=== PATIENT | male | born 2000 | race Hispanic/Latino ===

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

== ENCOUNTER 2022-03-13 13:44 | Emergency (ER) | payer OTHER ==
[~2022-03-13] VITALS: Ht 180.3 cm; Wt 140.6 kg
[2022-03-13 13:59] VITALS: BP 147/76
== END 2022-03-13 15:56 | disposition home or self-care (01) ==
LOC: EDH 13:44
DX: J06.9 Acute upper respiratory infection, unspecified (principal); Z20.822 Contact with and (suspected) exposure to COVID-19
CPT/HCPCS: 99283; 87635; 87804 ×2; C9803

== ENCOUNTER 2024-07-13 13:27 | Emergency (ER) | payer BC ==
[~2024-07-13] VITALS: Ht 88.9 cm; Wt 143.8 kg
[2024-07-13 13:30] VITALS: BP 135/89; PULSE 103; RESP 18; TEMP 99.3
--- NOTE | 2024-07-13 14:11 | ERN ---
ED Note History of Present Illness Stated Complaint: FEVER,NAUSEA Chief Complaint: Cough Time Seen by MD: 13:30 Time Seen by Midlevel: 13:33 Dictation: 24-year-old male coming in with complaints of itchy throat, cough and fever onset . Patient states the mother had similar symptoms last week. Denies any medical or surgical history. Allergies: Coded Allergies: No Known Drug Allergies (Unverified Allergy, Unknown, 09/06/19) Past Medical History Past Medical History: Asthma Surgical History: None Review of System Dictation Constitutional: Negative for fever,chills, and weight loss Eyes: Negative for injury, pain,redness, and discharge ENT: Negative for injury,pain or swelling Cardiovascular: Negative for chest pain, palpitations, and edema Respiratory: Complaining of cough Abdomen/GI: Negative for abdominal pain, nausea, vomiting, diarrhea, and constipation Back: Negative for injury and pain : Negative for injury, bleeding and discharge MS/Extremity: Negative for injury and deformity Skin: Negative for rash, and discoloration Neuro: Negative for headache, weakness, numbness, tingling, and seizure Psych: Negative for suicide ideation, homicidal ideation, and hallucinations Review of Systems: was completed Initial Vital Sign VS Vital Signs Date Time Temp Pulse Resp B/P (MAP) Pulse Ox O2 Delivery O2 Flow Rate FiO2 07/13/24 13:30 99.3 103 18 135/89 95 Room Air 0 Physical Exam Dictation General: awake, alert, NAD Head/Face: Normocephalic, atraumatic Eyes: PERRL, EOMI, vision at baseline ENT: oral cavity clear, TMs clear, no signs of infection Neck: Trachea midline, supple, no nuchal rigidity Cardiovascular: RRR, normal S1/S2, No MRGs, no JVD Respiratory: CTAB, no respiratory distress, No rales or wheezes Abdomen: Soft, non-tender, non-distended, normal bowel sounds, no guarding or rebound. Skin: Warm, dry, normal turgor, no rash MS/Extremity: Pulses equal, no cyanosis, neurovascular intact, FROM Neuro: COAx4, GCS 15, strength 5/5, CN 2-12 intact, normal cerebellar exam, normal gait, Psych: Normal behavior, mood, and affect normal Results (Laboratory/Radiology) Laboratory/Radiology Laboratory Tests Test 07/13/24 13:40 Influenza Type A Antigen Negative For Type A Influenza Type B Antigen Negative For Type B SARS-CoV-2, RNA, NAAT NEGATIVE SARS CoV-2 Labs Reviewed?: Yes ED Course ED Course Orders Procedure Category Date Status Time Covid Rna Naat LAB 07/13/24 Complete 13:35 Influenza Type A & B, LAB 07/13/24 Complete Rapid 13:35 Benzonatate 100 Mg PHA 07/13/24 Complete Capsule (Tessalon 100 13:56 Acetaminophen 500mg PHA 07/13/24 Complete Tab (Tylenol 500mg T 13:56 Ketorolac PHA 07/13/24 Complete Tromethamine 15mg/Ml 13:56 Rapid (Group A Strep) LAB 07/13/24 Logged 14:23 Current Medications Medications (Trade) Dose Ordered Sig/Sharda Route PRN Reason Start Time Stop Time Status Last Admin Dose Admin Acetaminophen (TYLenol 500MG TAB) 1,000 mg ONCE STAT PO 07/13/24 13:56 07/13/24 13:58 DC Benzonatate (Tessalon 100mg Caps) 200 mg ONCE STAT PO 07/13/24 13:56 07/13/24 13:58 DC Ketorolac Tromethamine (toRADol) 15 mg ONCE STAT IV 07/13/24 13:56 07/13/24 13:58 DC Vital Signs Date Time Temp Pulse Resp B/P (MAP) Pulse Ox O2 Delivery O2 Flow Rate FiO2 07/13/24 13:30 99.3 103 18 135/89 95 Room Air 0 Medical Decision Making MDM MDM: 24-year-old male coming in with complaints of itchy throat, cough and fever onset . Patient states the mother had similar symptoms last week. Denies any medical or surgical history. Swabs negative. Patient will be disch arged there viral syndrome. Discussed with the patient on findings. Educated take [id number] symptomatic control follow up with PCP in 1-2 days. Patient verbalized understanding, answered all questions. Differential diagnosis: Influenza, COVID, strep, viral syndrome Rationale: Tests considered and ordered secondary to shared decision making include: Previous outside records reviewed: Old ER visits. Risk of complication and/or morbidity or mortality of patient management: None Medications-Per medication reconciliation Need for hospitalization: Patient does not meet criteria for hospitalization. Need for emergency major/minor surgery: No There are no social concerns with this patient. Prescription drug management Prescriptions will include symptomatic care Patient's prior external medical records from other ER visits were reviewed by me as indicated. Prior testing and results from previous visits were reviewed. Prior tests were taken into account with medical decision making and resource utilization, independent historian/historians were used to obtain complete medical history. I independently interpreted the test that were performed, results were reviewed by me and considered findings on radiology if ordered. Medical management and examination interpretation discussions were had by me with other qualified healthcare professionals as indicated for the patient's care. DX & DISP Disposition: Discharge Departure Impression: Primary Impression: Viral syndrome Condition: Stable Additional Instructions: Your swabs were negative. Take [id number] medication for symptomatic control like Tylenol, Motrin, Mucinex. Follow up with your primary doctor in 1- 2 days. Referrals: SELF,REFERRAL (PCP) Time of Disposition: 14:56 I have reviewed the case, and I agree with, Diagnosis and Plan I PERFORMED A SUBSTANTIVE PORTION OF THE VISIT. I HAVE REVIEWED AND PERSONALLY MADE AND APPROVE THE MANAGEMENT PLAN THAT IS DOCUMENTED IN THE NOTE BY MYSELF OR THE AP P. I ACKNOWLEDGE FULL RESPONSIBILITY FOR THE PATIENT'S MANAGEMENT PLAN. ELAYNE AUGUSTINE NP July 13, 2024 14:11
[2024-07-13 14:29] LABS: SARS-CoV-2, RNA, NAAT NEGATIVE SARS CoV-2 (NEGATIVE)
[2024-07-13 14:33] LABS: INFLUENZA TYPE A Negative For Type A (NEGATIVE); INFLUENZA TYPE B Negative For Type B (NEGATIVE)
[2024-07-13] MEDS: BENZONATATE 100 MG CAPSULE PO STA (16:19)
[2024-07-13] MEDS: acetaMINOPHEN 500 MG TABLET PO STA (16:20)
[2024-07-13] MEDS: ketOROlac 15MG/ML VIAL (15MG/ML) IV STA (16:21)
--- NOTE | 2024-07-13 16:45 | NUR ---
PT PULLED IN FROM [facility] FOR ASSESSMENT/MEDS AND D/C INSTRUCTIONS.
== END 2024-07-13 16:47 | disposition home or self-care (01) ==
LOC: EDH 13:27
DX: B34.9 Viral infection, unspecified (principal); J45.909 Unspecified asthma, uncomplicated; Z20.822 Contact with and (suspected) exposure to COVID-19
CPT/HCPCS: 99284; 96374; 87635; 87804 ×2; J1885